=== PATIENT | female | born 1985 | race Caucasian/White ===

== ENCOUNTER 2021-07-03 19:38 | Emergency (ER) | payer OTHER ==
[~2021-07-03] VITALS: Ht 170.2 cm; Wt 90.7 kg
--- NOTE | ~2021-07-03 | EMS ---
[facility] [address] [place] [address] EMS Patient Care Report Name: ELSIEMILAN Pantoja Room #: DEP MICHELLE Aguilera#: [id number] Admission: 07/03/21 Attend Phys: Discharge: 07/04/21 Date of : 87 Report #: [id number] THIS REPORT FOR: //name// Report Transmitted: 07/04/2021 13:29 EMS Care Summary [facility] [place] Incident [id number] @ 07/03/2021 18:49 Incident Location [address] [place] [address] Patient MILAN ZIMMERMAN Female, 35 Years 1985 Patient Address [address] [place] [address] Patient History Other insomnia,Aneurysm of unspecified site,Injury of unspecified body region,Anxiety disorder, unspecified,Irritable Bowel Syndrome,Other seizures,Tobacco use,Legal blindness, as defined in [place],Dysthymic disorder,Gastro-Esophageal Reflux Disease (GERD),Bipolar disorder, unspecified, Patient Allergies , Patient Medications Amitriptyline, Clonazepam, Bentyl, Doxepin, Prozac, Ascorbic Acid / Biotin / Folic Acid / mecobalamin / Niacinamide / pantothenate / pyridoxine / Riboflavin / Thiamine, Furosemide, Haloperidol, Levetiracetam, Prilosec, Prazosin, Lyrica, Topiramate, Trazodone, Geodon, Chief Complaint Abdominal pain/discomfort Disposition Transported No Lights/[place] Reason Sick Person Transported To [facility] [address] [place] [address] EMS Patient Care Report Name: MILAN ZIMMERMAN Room #: DEP Willy#: [id number] Admission: 07/03/21 Attend Phys: Discharge: 07/04/21 Date of : 87 Report #: [id number] Narrative [facility] responded emergent to the stated address. Per dispatch downgraded to no lights no sirens. Upon arrival, pt is waiting outside of the residence with the pt. Per Staff, pt has been ill feeling x 2 days. Pt has nausea, vomiting, and diarrhea. Pt is ambulatory and walks to the end of the driveway with no assistance with normal gait. Pt contact is made. Primary assessment shows patent airway, alert, and spontaneous breathing. Pt sits herself on the cot. Pt states that she has some disabilities but is not feeling well today. Pt states "I haven't been able to keep anything down. I just don't feel good." Pt is secured using all necessary straps and 2 siderails. Pt is hooked up to the monitor. Pt's blood sugar is obtained. Pt states that pt had received 1 dose of an "anti-nausea medication." Pt is unable to remember the name of said medication. Street Superintendent Bethel does an assessment. Pt is BLS appropriate. Pt is monitored as documented during transport. No bouts of emesis or diarrhea during transport. Pt chooses [facility]. [facility]. Radio report is called. No questions or orders. Pt is unloaded from the ambulance without incident. Pt is taken to triage per commercial singer. Full verbal report given to SWAPNIL Posada. Pt belongings left with pt. Pt ambulates from cot to wheelchair with minimal assistance. All necessary signatures are obtained. [facility] clear. Initial Vitals @18:57Pain: 02/19, @19:30Pain: 02/19, @18:57SpO2: 99, @18:58SpO2: 99, @19:22SpO2: 97, @19:26SpO2: 97, @18:57P: 130,R: 20,BP: 141/82, @19:22P: 108,R: 20,BP: 110/67, @19:30P: 98,R: 20,BP: 105/69, @18:57GCS: 15, @19:22GCS: 15, @19:30GCS: 15, @18:57Glucose: 110, Assessments @18:56MENTAL:SKIN:HEENT:LUNG SOUNDS:ABDOMEN:PELVIS//GI:EXTREMITIES:PULSE:NEURO: Impression Diarrhea Timeline 12:00,Call Received [facility] [address] [place] [address] EMS Patient Care Report Name: MILAN ZIMMERMAN Room #: [facility] MICHELLE Aguilera#: [id number] Admission: 07/03/21 Attend Phys: Discharge: 07/04/21 Date of : 87 Report #: [id number] 18:49,Dispatch Notified 18:49,Psap Call 18:49,Dispatched 18:50,En Route 18:53,On Scene 18:56,At Patient 18:57,BP: / M,PULSE: ,RR: R,SPO2: Ox,ETCO2: ,BG: ,PAIN: 8,GCS: , 18:57,BP: / M,PULSE: ,RR: R,SPO2: 99 Ox,ETCO2: ,BG: ,PAIN: ,GCS: , 18:57,BP: 141/82 M,PULSE: 130,RR: 20 R,SPO2: Ox,ETCO2: ,BG: ,PAIN: ,GCS: , 18:57,BP: / M,PULSE: ,RR: R,SPO2: Ox,ETCO2: ,BG: ,PAIN: ,GCS: 15, 18:57,BP: / M,PULSE: ,RR: R,SPO2: Ox,ETCO2: ,B,PAIN: ,GCS: , 18:58,BP: / M,PULSE: ,RR: R,SPO2: 99 Ox,ETCO2: ,BG: ,PAIN: ,GCS: , 19:06,Depart Scene 19:22,BP: / M,PULSE: ,RR: R,SPO2: 97 Ox,ETCO2: ,BG: ,PAIN: ,GCS: , 19:22,BP: 110/67 M,PULSE: 108,RR: 20 R,SPO2: Ox,ETCO2: ,BG: ,PAIN: ,GCS: , 19:22,BP: / M,PULSE: ,RR: R,SPO2: Ox,ETCO2: ,BG: ,PAIN: ,GCS: 15, 19:26,BP: / M,PULSE: ,RR: R,SPO2: 97 Ox,ETCO2: ,BG: ,PAIN: ,GCS: , 19:30,BP: / M,PULSE: ,RR: R,SPO2: Ox,ETCO2: ,BG: ,PAIN: 8,GCS: , 19:30,BP: 105/69 M,PULSE: 98,RR: 20 R,SPO2: Ox,ETCO2: ,BG: ,PAIN: ,GCS: , 19:30,BP: / M,PULSE: ,RR: R,SPO2: Ox,ETCO2: ,BG: ,PAIN: ,GCS: 15, 19:32,At Destination 19:58,Call Closed Disclaimer v1.1 Copyright 2020 [employer] This EMS Care Summary contains data elements from the applicable legal record (which may be displayed differently). It is designed to provide pertinent information for the following purposes: continuity of care, clinical quality, and state data reporting. The complete legal record is available to ED staff and administrators of the receiving hospital in [employer]'s Patient Tracker. All data is provided "as is."
[~2021-07-03 19:38] MED LIST: BENTYL 10 MG CA10 M1 PO; ZOFRAN ODT4 MG PO
[2021-07-03 21:11] LABS: ABSOLUTE NEUTROPHILS 6.4 thou/uL (1.4-8.2); BASOPHILS 0.6 % (0.0-2.0); EOSINOPHILS 0.4 % (0.0-3.0); HEMATOCRIT 37.2 % (37.0-47.0); HEMOGLOBIN 12.3 gm/dL (12.0-15.0); LYMPHOCYTES 13.6 % (24.0-44.0); MCH 24.5 pg (26.0-34.0); MCHC 33.1 g/dL (28.0-37.0); MCV 74.1 fL (80.0-100.0); PLATELET COUNT 208 thou/uL (150-400); POLYS 78.4 % (36.0-66.0); RBC 5.02 mil/uL (4.20-5.00); RDW 18.2 % (10.5-14.5); WBC 8.2 thou/uL (4.0-11.0)
[2021-07-03 21:21] LABS: CALCIUM 8.1 mg/dL (8.5-10.1); POTASSIUM 3.4 mmol/L (3.5-5.1)
[2021-07-03 21:27] LABS: ALBUMIN 3.2 g/dL (3.4-5.0); TOTAL BILIRUBIN 0.4 mg/dL (0.2-1.0); TOTAL PROTEIN 7.3 g/dL (6.4-8.2)
[2021-07-03] MEDS ORDERED: ZOFRAN ODT4 MG PO (23:03)
[2021-07-03] MEDS ORDERED: BENTYL 10 MG CA10 M1 PO (23:03)
[2021-07-03 23:10] LABS: URINE BILIRUBIN NEGATIVE (Negative); URINE BLOOD NEGATIVE (Negative); URINE CLARITY CLEAR; URINE COLOR YELLOW; URINE GLUCOSE-RANDOM* NEGATIVE (Negative); URINE KETONES NEGATIVE (Negative); URINE LEUKOCYTES-REFLEX NEGATIVE (Negative); URINE NITRITE-REFLEX NEGATIVE (Negative); URINE PROTEIN (DIPSTICK) NEGATIVE (Negative); URINE SPECIFIC GRAVITY 1.025 (1.005-1.035)
[2021-07-03 23:41] VITALS: BP 111/69
== END 2021-07-04 00:15 | disposition home or self-care (01) ==
LOC: ER 19:38
PROVIDERS: Physician Assistant
DX: K52.9 Noninfective gastroenteritis and colitis, unspecified (principal); Z20.822 Contact with and (suspected) exposure to COVID-19; E87.6 Hypokalemia; R74.01 Elevation of levels of liver transaminase levels; F32.9 Major depressive disorder, single episode, unspecified; F41.9 Anxiety disorder, unspecified; F17.200 Nicotine dependence, unspecified, uncomplicated; Z88.6 Allergy status to analgesic agent; Z88.1 Allergy status to other antibiotic agents; Z88.5 Allergy status to narcotic agent; Z88.8 Allergy status to other drugs, medicaments and biological substances